=== PATIENT | female | born 1965 | race Hispanic/Latino ===

== ENCOUNTER 2016-12-02 05:53 | Day surgery (SDC) | payer OTHER ==
--- NOTE | 2016-12-01 17:17 | History and Physical Report ---
History of Present Illness Date of examination: 11/28/16 History of present illness: This patient has a strong family history to DVT's/PE's and she was diagnosed with thrombocystosis. The decision was made to discontinue OC's and place a Paragard IUD for contraception. Shortly after the IUD was placed she experience abnormal uterine bleeding and was found to have an intrauterine mass. Her IUD was removed and the EMB was normal. Since her has had a vasectomy she desires conservative management with removal of the mass with endometrial ablation. Past History : 1 Term Births: 1 Living Children: 1 Para: 1 Aborta: 0 # 1 Comments: [id number] [employer] G[employer] K[employer]PER History Uterine Surgery (not C/S): negative Operations: hysteroscopic Myomectomy (08/01/2011) Hospitalizations: negative Anesthesia Complications: negative Abnormal PAP: positive Uterine Anomaly: negative CLAUDIA Exposure: negative Infertility: negative Infection History HIV Risk Eval: no Personal hx. of genital herpes: no Hx of STD: None Active Medications (reviewed today): OXYCODONE-ACETAMINOPHEN 5-325 MG TABS (OXYCODONE-ACETAMINOPHEN) 1 po q6h IBUPROFEN 800 MG TABS (IBUPROFEN) 1 po TID (PRN) [id number] CAPS ([id number] CAPS) ASPIRIN 81 MG ORAL TABS (ASPIRIN) CLARITIN TABS (LORATADINE TABS) SERTRALINE HCL 25 MG ORAL TABS (SERTRALINE HCL) 1 tab po qd Current Allergies (reviewed today): SULFA (Critical) CODEINE (Mild) Past Medical History: Reviewed history from 11/10/2016 and no changes required: Migraines/vertigo Neurologist is Dr. 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 Past Surgical History: Reviewed history from 06/26/2014 and no changes required: hysteroscopic Myomectomy (08/01/2011) Family History Summary: Reviewed history Last on 08/01/2015 and no changes required:12/01/2016 PGM - Has Family History of Bleeding disorder - DVT spontaneous - Entered On: 10/23/2016 Brother (full) - Has Family History of Bleeding disorder - DVT after knee surgery - Entered On: 10/23/2016 Aunt - Has Family History of Bleeding disorder - paternal DVT, spontaneous - Entered On: 10/23/2016 Father (biol.) - Has Family History of Bleeding disorder - DVT/PE spontaneous - Entered On: 10/23/2016 Other family member - Has No Family History of Biliary Tract Cancer - Entered On : 10/23/2016 Other family member - Has No Family History of Breast Cancer - Entered On: 2016 Other family member - Has No Family History of Brain Cancer - Entered On: 2016 Other family member - Has No Family History of Colon Cancer - Entered On: 2016 Other family member - Has No Family History of DVT/PE on OCP - Entered On: 2016 Other family member - Has No Family History of Kidney/Urinary Tract Cancer - Entered On: 10/23/2016 Other family member - Has No Family History of Ovarvian Cancer - Entered On: 10/23 Other family member - Has No Family History of Pancreatic Cancer - Entered On: Other family member - Has No Family History of Stomach Cancer - Entered On: 2016 Other family member - Has No Family History of Small Bowel Cancer - Entered On: 10/23/2016 Other family member - Has No Family History of Uterine Cancer - Entered On: 2016 General Comments - FH: No Family History of Breast Cancer No Family History of Colon Cancer No Family History of Ovarvian Cancer No Family History of DVT/PE on OCP Social History: Reviewed history from 08/29/2016 and no changes required: Patient is Smoking History: Patient has never smoked. Risk Factors: Smoked Tobacco Use: Never smoker Alcohol use: yes PAP Smear History: Date of Last PAP Smear: 08/29/2016 Previous Tobacco Use: Signed On 11/10/2016 Smoked Tobacco Use: Never smoker Smokeless Tobacco Use: Never Drug use: no HIV high-risk behavior: no Previous Alcohol Use: Signed On 11/10/2016 Alcohol use: yes Type: occ Drinks per day: social Exercise: no Seatbelt use: 100 % Mammogram History: Date of Last Mammogram: 09/25/2015 PAP Smear History: Date of Last PAP Smear: 08/29/2016 Review of Systems General Denies fever, chills, sweats, anorexia, fatigue, weakness, malaise, weight loss and sleep disorder. Complains of menorrhagia and abnormal vaginal bleeding. Denies vaginal discharge, incontinence, dysuria, hematuria, urinary frequency, amenorrhea, pelvic pain, genital sores, decreased libido, painful periods, painful sex, urinary urgency, hot flashes, vaginal dryness, vaginal itching and vaginal odor. Physical Exam Appearance: well developed, well nourished, no acute distress Other Exams Lungs: no rales, rhonchi, or wheezes Heart: S1, S2, no murmur, rub, or gallop Abdomen: soft, non-tender, no masses, Skin: no ulcers, xanthomas Lymph: no cervical, axillary, or inguinal adenopathy Extremities: normal alignment, no joint enlargement, crepitus, masses or tenderness; normal tone and strength Genitourinary Exam Vulva: normal, no lesions or discharge Urethral meatus: normal size and location, no lesions or discharge Urethra: no discharge Bladder: no cystocele Vagina: normal appearance, no discharge, lesions. No evidence of cystocele or rectocele. Cervix: normal appearance, no lesions, no discharge Uterus: normal position, midline, mobile Adnexa: no masses or tenderness Impression & Recommendations: Problem # 1: Fibroids of uterus, Submucosal (ICD-218.0) (SBN10-I89.0) Diagnosis explained to patient . Questions answered. Discussed with patient various medical, surgical and radioloigal therapies common for treatment: Hormonal/medical therapy, fibroid embolization, removal of fibroids or hysterectomy The following medications were removed from the medication list: Paragard Intrauterine Copper Iud (Copper) Her updated medication list for this problem includes: Oxycodone-acetaminophen 5-325 Mg Tabs (Oxycodone-acetaminophen) ..... 1 po q6h Ibuprofen 800 Mg Tabs (Ibuprofen) ..... 1 po tid (prn) Aspirin 81 Mg Oral Tabs (Aspirin) Problem # 2: Menometrorrhagia (ICD-626.2) (VKD97-U79.1) Diagnosis explained to patient . Questions answered. Discussed with patient various medical and surgical therapies common for treatment: Hormonal/medical therapy,endometrial ablation or hysterectomy. She desires Hysteroscopy with resection of endometrial mass and endometrial ablation Her updated medication list for this problem includes: Ibuprofen 800 Mg Tabs (Ibuprofen) ..... 1 po tid (prn) Consent reviewed and signed . Possible laparoscopy or laparotomy explained to patient. The risks and alternatives for this surgery were reviewed with the patient. She was informed of possible bleeding, infection, injury to bowel, bladder, ureters or other adjacent organs. She was informed she may continue to bleed regularly or irregular after the mass has been removed and after the ablation. The patient was instructed/informed the following: The normal length of hospital stay for this procedure. Nothing to eat or drink after midnight the evening prior to surgery. Clear liquids the day before surgery. Fleets enema the day prior to surgery. Pre-op instruction sheets given. Wound care instructions given. Infection precautions reviewed, patient to call for any signs or symptoms of infection. The usual discomforts associated with this procedure were detailed. Proper use of pain medicines was reviewed. Patient was given ample opportunity to have all her questions answered before signing informed consent. Patient voiced understanding. Problem # 3: Endometrial mass (ICD-236.0) (FWE79-W49.0) Medications Added to Medication List This Visit: 1) Oxycodone-acetaminophen 5-325 Mg Tabs (Oxycodone-acetaminophen) .... 1 po q6h 2) Ibuprofen 800 Mg Tabs (Ibuprofen) .... 1 po tid (prn) Prescriptions: OXYCODONE-ACETAMINOPHEN 5-325 MG TABS (OXYCODONE-ACETAMINOPHEN) 1 po q6h #10 x 0 Entered and Authorized by: Emily Elkins MD Method used: Print then Give to Patient RxID: [id number] IBUPROFEN 800 MG TABS (IBUPROFEN) 1 po TID (PRN) #30 Tablet x 1 Entered and Authorized by: Emily Elkins MD Method used: Print then Give to Patient RxID: [id number] Medications and Allergies Allergies Allergy/AdvReac Type Severity Reaction Status Date / Time codeine Allergy cries, Verified 11/27/16 10:25 freaks out Sulfa (Sulfonamide Allergy Rash Verified 11/27/16 10:25 Antibiotics) Home Medications Medication Instructions Recorded Confirmed Last Taken Type Aspirin [Adult Low Dose Aspirin EC] 81 mg PO DAILY 11/27/16 11/27/16 11/21/16 History Sertraline HCl [Sertraline HCl] 25 mg PO DAILY 11/27/16 11/27/16 Unknown History Vitamin B Complex [Super B-50 1 each PO DAILY 11/27/16 11/27/16 Unknown History Complex] Active Meds: Active Medications Cefazolin Sodium (Ancef/Sterile Water 2 Gm/20 Ml) 2 gm in 20 mls @ 80 mls/hr IV PREOP NR PRN Reason: Protocol Assessment and Plan - Patient Problems (1) Endometrial mass Status: Acute (2) Menorrhagia Status: Acute Qualifiers: Menorrahagia type: M
[~2016-12-02 05:53] MED LIST: ANCEF/STERILE WATER 2 GM/20 ML 2 GM/20 ML SYRINGE IV NR
--- NOTE | 2016-12-02 06:22 | Anesthesia Day of Surgery ---
Anesthesia Day of Surgery - Day of Surgery Patient Examined: Yes Patient H&P Reviewed: Yes Patient is NPO: Yes
--- NOTE | 2016-12-02 06:27 | Anesthesia Consultation ---
Anesthesia Consult and Med Hx Date of service: 12/02/16 - Airway Anesthetic Teeth Evaluation: Good ROM Head & Neck: Adequate Mental/Hyoid Distance: Adequate Mallampati Class: Class III Intubation Access Assessment: Possibly Difficult - Pulmonary Exam CTA: Yes (blbs clear) - Cardiac Exam Cardiac Exam: RRR - Pre-Operative Health Status ASA Pre-Surgery Classification: ASA2 Proposed Anesthetic Plan: General - Central Nervous System Hx Psychiatric Problems: Yes - Hematic Hx Anemia: Yes (past hx, resolved now) - Other Systems Hx Alcohol Use: Yes (occas) Hx Cancer: No
[2016-12-02] MEDS ORDERED: NACL BACTERIOSTATIC INFILTRATI ONE (06:39)
[2016-12-02] MEDS ORDERED: PEPCID PO NR (07:00)
[2016-12-02] MEDS ORDERED: VERSED IV NR (07:00)
[2016-12-02] MEDS ORDERED: NACL 0.9% 1000 ML 1,000 ML IV SCH (07:00)
[2016-12-02 07:08] LABS: Hematocrit 37.2 % (30.3-42.9); Hemoglobin 12.3 gm/dl (10.1-14.3); Mean Corpuscular HGB Conc 33 % (30-34); Mean Corpuscular Hemoglobin 29 pg (28-32); Mean Corpuscular Volume 89 fl (79-97); Platelet Count 388 K/mm3 (140-440); Red Blood Count 4.21 M/mm3 (3.65-5.03); Red Cell Distribution Width 14.2 % (13.2-15.2); White Blood Count 9.6 K/mm3 (4.5-11.0)
[2016-12-02] MEDS ORDERED: DILAUDID ONE (07:08)
[2016-12-02] MEDS ORDERED: DIPRIVAN 10 MG/ML IV ONE (07:08)
[2016-12-02] MEDS ORDERED: XYLOCAINE MPF 2% ONE (07:09)
[2016-12-02] MEDS ORDERED: DECADRON ONE (07:30)
[2016-12-02] MEDS ORDERED: NACL 0.9% IR ONE (07:57)
[2016-12-02] MEDS ORDERED: NACL 0.9% 1000 ML 1,000 ML ONE (08:24)
[2016-12-02] MEDS ORDERED: NEO SYNEPHRINE ONE (08:49)
[2016-12-02] MEDS ORDERED: NACL 0.9% 100 ML ONE (08:49)
[2016-12-02] MEDS ORDERED: TORADOL ONE (08:49)
[2016-12-02] MEDS ORDERED: ZOFRAN IV PRN (09:00)
[2016-12-02] MEDS ORDERED: DILAUDID IV PRN (09:00)
--- NOTE | 2016-12-02 09:49 | Operative Report ---
Operative Report Operative Report: Date of procedure: 12/02/2016 Pre-operative diagnosis: 1. Menometrorrhagia 2. Endometrial mass Post-operative diagnosis: 1. Menometrorrhagia 2. Endometrial mass Procedure name(s): 1. Diagnostic hysteroscopy with dilation and curettage 2. Excision of endometrial mass 3. NovaSure ablation Surgeon: Emily Elkins MD Rehabilitation Manager: [] Anesthesia: Gen. anesthesia Findings: Uterine cavity length 4 cm Uterine cavity width 3.9cm Ablation time 91 seconds Power 86 W Complications: None EBL: 100 mL Urine output: 500 mL Distention fluid: Normal saline Fluid deficit: 650 mL Procedure: After risks, benefits, complications, consequences, and alternatives for this procedure were discussed the patient and she voiced understanding and her desire to proceed, she was taken to the OR and placed in the supine position. General anesthesia was induced. The patient was placed in the dorsal lithotomy position. Exam under anesthesia was unremarkable. She was then prepped and draped in the usual sterile fashion. Timeout was performed. Stephens catheter was introduced into the bladder. A bivalve speculum was introduced into the vagina. The anterior lip the cervix was grasped with a single-tooth tenaculum. The uterus was sounded to approximately 8 cm. The cervix was progressively dilated to allow the diagnostic hysteroscope. Left lateral mass was noted. Appears to be consistent with a submucosal fibroid. No evidence of an intrauterine device. No obvious evidence perforation was noted. Uterine curettage was performed. Excision of the endometrial mass was performed with the Myosure device under direct visualization. Again no evidence of perforation was noted. Cervical length was measured to be 4 cm. Therefore uterine cavity length was 4 cm. Cavity length on the NovaSure ablation device was set at 4 cm. The NovaSure device was then placed inside the uterine cavity. The array was released. Uterine cavity width was measured at 3.9 cm. Once the cavity integrity was confirmed, ablation was performed at 86 W of energy for 91 seconds. The device was removed. The hysteroscope was reintroduced into the uterine cavity. Good ablation was noted. No obvious evidence of perforation was noted. The instruments were removed. There was slight bleeding from the tenaculum on the cervix that was made hemostatic with manual pressure. At which point the procedure was ended. Patient was taken to recovery room in stable condition. Saline solution was used along with the Aquilex management device. Fluid deficit was noted to be 650 mL. Counts were correct x3.
--- NOTE | 2016-12-02 09:59 | Post Anesthesia Evaluation ---
- Post Anesthesia Evaluation Patient Participated: Yes Airway Patent: Yes Stable Respiratory Function: Yes Nausea/Vomiting: No Temp > 96.8F: Yes Pain Manageable: Yes Adequeate Hydration: Yes Anesthesia Complications: No Block Receding Appropriately: Not Applicable Patient on Ventilator: No
[2016-12-02 10:22] LABS: Anion Gap 18 mmol/L; BUN/Creatinine Ratio 13.33; Blood Urea Nitrogen 8 mg/dL (7-17); Calcium 8.1 mg/dL (8.4-10.2); Carbon Dioxide 22 mmol/L (22-30); Chloride 107.5 mmol/L (98-107); Glucose 158 mg/dL (65-100); Sodium 143 mmol/L (137-145)
--- NOTE | 2016-12-02 11:42 | Discharge Summary ---
Providers - Providers Date of discharge: 12/02/16 Attending physician: SOMMER FELIPE Primary care physician: CHRISTIANO LUX Hospitalization Condition: Good Disposition: DISCHARGED TO HOME OR SELFCARE - Discharge Diagnoses (1) Endometrial mass Status: Resolved (2) Menorrhagia Status: Resolved Qualifiers: Menorrahagia type: with irregular cycle Qualified Code(s): N92.1 - Excessive and frequent menstruation with irregular cycle Core Measure Documentation - Palliative Care Palliative Care/ Comfort Measures: Not Applicable - Core Measures Any of the following diagnoses?: none Exam - Constitutional Vitals: Temp Pulse Resp BP Pulse Ox 97.7 F 70 17 150/84 99 12/02/16 10:30 12/02/16 10:30 12/02/16 10:30 12/02/16 10:30 12/02/16 10:30 General appearance: Present: no acute distress - Respiratory Respiratory effort: normal - Cardiovascular Rhythm: regular - Abdominal Female genitourinary: Present: deferred Plan Activity: other (no sex, no driving x3days) Weight Bearing Status: Weight Bear as Tolerated Diet: regular Special Instructions: no heavy lifting Additional Instructions: Instructed to use Percocet only with family present at all times. Call office for any swelling, shortness of breath, itching or any concerns. Follow up with: CHRISTIANO LUX MD [Primary Care Provider] - 7 Days SOMMER FELIPE MD [Staff Physician] - (as scheduled) Forms: [facility]
[2016-12-02] MEDS ORDERED: ZOFRAN IV ONE (12:04)
[2016-12-02 14:50] VITALS: BP 165/95
== END 2016-12-02 05:54 | disposition home or self-care (01) ==
LOC: OR 05:53
PROVIDERS: ATTEND Obstetrics & Gynecology
DX: D25.9 Leiomyoma of uterus, unspecified (principal); D64.9 Anemia, unspecified; Z72.89 Other problems related to lifestyle; Z88.2 Allergy status to sulfonamides; Z88.5 Allergy status to narcotic agent; Z83.2 Family history of diseases of the blood and blood-forming organs and certain disorders involving the immune mechanism
CPT/HCPCS: 36415; 58561; 58563; 80048; 81025; 85027; 86850; 86900; 86901; 88305; A4217; C1782; J0690; J1100; J1170; J1885; J2250; J2370; J2405; J2704; J7030